=== PATIENT | male | born 1945 | race Caucasian/White ===

== ENCOUNTER 2021-04-07 18:24 | Emergency (ER) | payer SELFPAY ==
[~2021-04-07] VITALS: Ht 182.9 cm; Wt 109.1 kg
[2021-04-07 18:28] VITALS: BP 160/92; Ht 182.9 cm; Wt 109.1 kg
== END 2021-04-07 18:38 | disposition left against medical advice (07) ==
LOC: D.ER 18:24
DX: R07.9 Chest pain, unspecified (principal); I25.10 Atherosclerotic heart disease of native coronary artery without angina pectoris; Z53.21 Procedure and treatment not carried out due to patient leaving prior to being seen by health care provider